=== PATIENT | male | born 1990 | race Caucasian/White ===

== ENCOUNTER 2023-03-15 17:36 | Emergency (ER) | payer BC ==
[~2023-03-15] VITALS: Ht 180.3 cm; Wt 83.0 kg
[2023-03-15 18:00] VITALS: BP 148/95; PULSE 86; RESP 20; TEMP 98.6; O2SAT 98
[2023-03-15] MEDS ORDERED: BACITRACIN OINT 500 UNITS/GM PKT TP ONE (18:20)
[2023-03-15 19:22] VITALS: BP 148/95; PULSE 86; RESP 20; TEMP 98.6; O2SAT 98
== END 2023-03-15 19:22 | disposition home or self-care (01) ==
LOC: MED 17:36
DX: S00.01XA Abrasion of scalp, initial encounter (principal); J45.909 Unspecified asthma, uncomplicated; Z91.010 Allergy to peanuts; V89.2XXA Person injured in unspecified motor-vehicle accident, traffic, initial encounter; Y93.89 Activity, other specified; Y92.410 Unspecified street and highway as the place of occurrence of the external cause; Y99.8 Other external cause status
CPT/HCPCS: 90471; 90715; 99283